=== PATIENT | male | born 1990 ===

== ENCOUNTER 2024-02-02 08:06 | Emergency (ER) | payer OTHER ==
[2024-02-02 08:11] VITALS: BP 112/78; PULSE 76; RESP 18; TEMP 98.8; BMI 24.0
== END 2024-02-02 09:37 | disposition home or self-care (01) ==
LOC: JER 08:06
DX: H65.192 Other acute nonsuppurative otitis media, left ear (principal); R51.9 Headache, unspecified; H93.12 Tinnitus, left ear; H92.02 Otalgia, left ear
CPT/HCPCS: 99283-25